=== PATIENT | male | born 1980 | race Caucasian/White ===

== ENCOUNTER 2021-05-04 07:56 | Emergency (ER) | payer MEDICAID ==
[~2021-05-04] VITALS: Ht 165.1 cm; Wt 72.6 kg
--- NOTE | 2021-05-04 08:15 | NUR ---
Pt triaged and placed in waiting room.
--- NOTE | 2021-05-04 08:20 | NUR ---
Pt walked in to ER with c/o right wrist pain, s/p mechanical fall this morning, pain 8/10. Denies any other trauma at this time. V/S stable, no acute distress noted.
--- NOTE | 2021-05-04 08:25 | NUR ---
ER Dr. Shay at bedside examining patient.
[2021-05-04 08:31] VITALS: BP_SYST 135
[2021-05-04] MEDS ORDERED: IBUP-1969 PO (08:53)
[2021-05-04 08:58] VITALS: BP_SYST 135
--- NOTE | 2021-05-04 08:58 | NUR ---
Patient given written and verbal discharge instructions and verbalizes understanding. ER MD discussed with patient the results and treatment provided. Patient in stable condition. ID arm band removed. Rx of motrin given. Patient educated on pain management and to follow up with PMD. Pain Scale 0. Opportunity for questions provided and answered. Medication side effect fact sheet provided.
== END 2021-05-04 08:58 | disposition home or self-care (01) ==
LOC: SED 07:56
DX: S63.501A Unspecified sprain of right wrist, initial encounter (principal); Z79.899 Other long term (current) drug therapy; W01.0XXA Fall on same level from slipping, tripping and stumbling without subsequent striking against object, initial encounter; Y93.89 Activity, other specified; Y92.89 Other specified places as the place of occurrence of the external cause; Y99.8 Other external cause status
CPT/HCPCS: 99283